=== PATIENT | male | born 1950 | race American Indian/Alaskan Native ===

== ENCOUNTER 2018-01-18 22:29 | Emergency (ER) | payer MEDICARE ==
[2018-01-19 04:55] VITALS: BP 158/92
--- NOTE | 2018-01-19 07:11 | Emergency Department Report ---
ED General Adult HPI - General Chief complaint: Neck Pain/Injury Stated complaint: HIGH BP/PAIN NECK/LEG Time Seen by Provider: 01/19/18 06:25 Source: patient Mode of arrival: Ambulatory Limitations: No Limitations - History of Present Illness Initial comments: Patient here complaining of neck pain high blood pressure lack of sleep restless leg syndrome and hip pain. He said this has been ongoing he has multiple doctor for his hypertension. He said he went to his doctor and he was prescribed trazodone for sleep 2 days ago but it is not helping patient has prescription bottle with them his blood pressure today is 130/80. Pain is 5 out of 10 and achy. Patient reports that he has arthritis. Denies any recent injuries or any nausea or vomiting. Denies any back pain or abdominal pain. Denies any chest pain or shortness of breath. Denies any fever or chills. Pain is worse with movement and better with rest. He states that he takes Tylenol arthritis and it helps a little. MD Complaint: generalized pain -: month(s) Location: neck, pelvis Radiation: non-radiation Severity scale (0 -10): 5 Quality: aching Consistency: intermittent Improves with: rest Worsens with: movement Associated Symptoms: other (restless leg syndrome, lack of sleep and high blood pressure). denies: confusion, chest pain, cough, diaphoresis, fever/chills, headaches, loss of appetite, malaise, nausea/vomiting, rash, seizure, shortness of breath, syncope, weakness Treatments Prior to Arrival: other (Tylenol and trazodone) - Related Data Previous Rx's Medication Instructions Recorded Last Taken Type traMADol [Ultram 50 MG tab] 50 mg PO Q6HR PRN #20 tablet 01/19/18 Unknown Rx Allergies Allergy/AdvReac Type Severity Reaction Status Date / Time No Known Allergies Allergy Unverified 01/18/18 23:46 ED Review of Systems ROS: Stated complaint: HIGH BP/PAIN NECK/LEG Other details as noted in HPI Constitutional: denies: chills, fever Eyes: denies: eye pain, eye discharge, vision change ENT: denies: ear pain, throat pain Respiratory: denies: cough, shortness of breath, SOB with exertion, SOB at rest , stridor, wheezing Cardiovascular: denies: chest pain, palpitations, edema, syncope Gastrointestinal: denies: abdominal pain, nausea, vomiting, diarrhea, hematemesis, hematochezia Genitourinary: denies: urgency, dysuria, hematuria Musculoskeletal: arthralgia, myalgia. denies: back pain, joint swelling Skin: denies: rash, lesions Neurological: other (lack of sleep and restless leg syndrome). 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 - Family History Family history: hypertension - Social History Smoking Status: Never Smoker Substance Use Type: Marijuana - Medications Home Medications: Home Medications Medication Instructions Recorded Confirmed Last Taken Type traMADol [Ultram 50 MG tab] 50 mg PO Q6HR PRN #20 tablet 01/19/18 Unknown Rx ED Physical Exam - General Limitations: No Limitations General appearance: alert, in no apparent distress - Head Head exam: Present: atraumatic, normocephalic, normal inspection, other (normal exam) - Eye Eye exam: Present: normal appearance, PERRL, EOMI Pupils: Present: normal accommodation - ENT ENT exam: Present: normal exam, normal orophraynx, mucous membranes moist, TM's normal bilaterally, normal external ear exam - Neck Neck exam: Present: normal inspection, full ROM, other (no C-spine tenderness). Absent: tenderness, meningismus, lymphadenopathy, thyromegaly - Respiratory Respiratory exam: Present: normal lung sounds bilaterally. Absent: respiratory distress, chest wall tenderness - Cardiovascular Cardiovascular Exam: Present: regular rate, normal rhythm, normal heart sounds. Absent: systolic murmur, diastolic murmur - GI/Abdominal GI/Abdominal exam: Present: soft, normal bowel sounds. Absent: tenderness, rigid - Extremities Exam Extremities exam: Present: normal inspection, full ROM, normal capillary refill , other (No cce. + 2 pulses in all extremities, no neurovascular compromise. Patient with full range of motion to all extremities, he is able to ambulate without any difficulties, no joint deformity, crepitus or effusion noted on exam.). Absent: tenderness, pedal edema, joint swelling, calf tenderness - Back Exam Back exam: Present: normal inspection, full ROM, other (ambulates without any difficulties). Absent: tenderness, CVA tenderness (R), CVA tenderness (L), muscle spasm, paraspinal tenderness, vertebral tenderness, rash noted - Neurological Exam Neurological exam: Present: alert, oriented X3, normal gait, reflexes normal, other (no focal neurological deficit). Absent: motor sensory deficit - Psychiatric Psychiatric exam: Present: normal affect, normal mood - Skin Skin exam: Present: warm, dry, intact, normal color. Absent: rash ED Course Vital Signs 01/18/18 01/19/18 23:41 04:55 Temperature 98.0 F Pulse Rate 63 62 Respiratory 17 18 Rate Blood Pressure 132/80 Blood Pressure 158/92 [Left] O2 Sat by Pulse 99 99 Oximetry - Reevaluation(s) Reevaluation #1: 01/19/18 07:45 Patient stable throughout ED course. ED Medical Decision Making - Medical Decision Making This is a 67-year-old male here reports that he suffers from lack of sleep due to restless leg syndrome, neck pain and hip pain from his leg moving all night. He was just started on trazodone a couple days ago by his primary care physician but he said it is not working. He is taken Tylenol arthritis or pain. I saw and examined patient and his physical exam is normal. I discussed the patient that usually medication takes a couple weeks to start work in and that he needs to go back to his primary care on 01/22/2018 to discuss restless leg syndrome to see if he can get medication for that but I cannot start him on any medication in emergency room for this. I also told him that he needs to follow up with neurologist regarding this. Regarding his sleep I told him that these taken trazodone he should continue to take this as prescribed by his primary care physician and if it is not working and then he has to decide with his primary care physician if he needs to change medication to help him to sleep and also to manage his restless leg syndrome. I discussed the patient that I will give him a few days' worth of Ultram to take until he can see his primary care doctor which will help is arthritis pain. He agrees the plan. Patient discharged home in stable condition he is taking and multiple medications for his blood pressure which is stable. Vital signs stable afebrile and discharged home a prescription for Ultram. Critical care attestation.: If time is entered above; I have spent that time in minutes in the direct care of this critically ill patient, excluding procedure time. ED Disposition Clinical Impression: Musculoskeletal pain Insomnia Qualifiers: Insomnia type: unspecified Qualified Code(s): G47.00 - Insomnia, unspecified Disposition: - TO HOME OR SELFCARE Is pt being admited?: No Does the pt Need Aspirin: No Condition: Stable Instructions: Musculoskeletal Pain (ED) Additional Instructions: Please follow up with a primary care physician 01/22/2018 See referral given for neurologists Take medication as prescribed please do not drive or operate heavy machinery while taking Ultram as this medication causes drowsiness Referrals: PRIMARY MD HEATH [Primary Care Provider] - 01/22/18 NELL RAMIREZ MD [Staff Physician] - 3-5 Days
== END 2018-01-19 07:56 | disposition home or self-care (01) ==
LOC: ED 22:29
DX: M54.2 Cervicalgia (principal); M79.1 Myalgia; G47.00 Insomnia, unspecified; I10 Essential (primary) hypertension; F12.10 Cannabis abuse, uncomplicated
CPT/HCPCS: 99282